=== PATIENT | male | born 1960 | race Caucasian/White ===

== ENCOUNTER → 2017-03-16 | Day surgery (SDC) | payer OTHER ==
[~2017-03-16] MED LIST: LISINOPRIL10 MG PO; OMEPRAZOLE20 M1 PO
--- NOTE | ~2017-03-16 | OR ---
Unit #: [id number] #: [id number] Patient: YUDELKA HAND [id number] [address] [address] [id number] O MR#: [id number] NAME: YUDELKA HAND ROOM: Date of Procedure: 03/16/2017 Admission Date: 03/16/2017 Surgeon: Gene Jordan M.D. : 1960 Attending Physician: Gene Jordan M.D. Primary Care Physician: [facility]. OPERATIVE REPORT PROCEDURES PERFORMED Colonoscopy with snare polypectomy and colonoscopy with hemoclip application. INDICATIONS FOR PROCEDURE Average risk for colorectal cancer. MEDICATIONS Monitored anesthesia. POSTOPERATIVE FINDINGS 1. Prep was poor leading to suboptimal exam. 2. 1 cm polyp with a wide stalk in the sigmoid colon. It was snared and sent for histopathology. Hemoclip was applied to the location to ensure hemostasis. PLAN Repeat colonoscopy in 1 year given the poor prep and presence of large polyp. DESCRIPTION OF PROCEDURE The patient was explained of the procedure risks and benefits along with risks and benefits of anesthesia. He was brought to the endoscopy room. Propofol anesthesia was given. Rectal exam was done, which was normal. Colonoscope was lubricated, passed up the rectum, advanced under direct vision all the way to the cecum. Cecum was identified by ileocecal valve and appendiceal orifice. Polyps seen in the sigmoid were snared and sent for histopathology as described. I retroflexed in the rectum, small hemorrhoids noted. Gently, the scope was gently pulled out. He tolerated it well. No major complications. Dictated by... Kate Montoya/kvng TD: 03/16/2017 14:30 JOB #: [id number] CC: Barbi Castillo Aprn Unit #: [id number] #: [id number] Patient: YUDELKA HAND OPERATIVE REPORT Page 1 of 1 X Gene Jordan MD X PROCEDURE OPERATIVE NOTE
== END | disposition home or self-care (01) ==
LOC: COPS 06:16 → EDBD 08:00 → COPS 08:00
DX: Z12.11 Encounter for screening for malignant neoplasm of colon (principal); D12.5 Benign neoplasm of sigmoid colon; K64.9 Unspecified hemorrhoids; I10 Essential (primary) hypertension; F17.210 Nicotine dependence, cigarettes, uncomplicated; Z79.899 Other long term (current) drug therapy; Z98.890 Other specified postprocedural states
CPT/HCPCS: 88305; J2250